=== PATIENT | male | born 1945 | race Hispanic/Latino ===

== ENCOUNTER 2024-10-28 20:53 | Emergency (ER) | payer MEDICARE ==
[~2024-10-28] VITALS: Ht 157.5 cm; Wt 90.7 kg
[2024-10-28 21:08] VITALS: TEMP 98.4
[2024-10-28 21:29] LABS: BASOPHILS % 0.2 % (0.0-1.0); EOSINOPHILS % 0.2 % (0.0-6.0); HEMATOCRIT 39.9 % (38.2-49.6); LYMPHOCYTES # (AUTO) 0.5 (1.0-3.2); LYMPHOCYTES % 4.5 % (18.0-39.1); MEAN CORPUSCULAR HEMOGLOBIN 32.5 pg (28-32); MEAN CORPUSCULAR HGB CONC 32.6 g/dL (31-35); MEAN CORPUSCULAR VOLUME 99.8 fL (81-99); MONOCYTES # (AUTO) 0.4 (0.2-0.8); MONOCYTES % 3.8 % (4.4-11.3); NEUTROPHILS # (AUTO) 9.4 (2.1-6.9); NEUTROPHILS % 90.9 % (38.7-80.0); PLATELET COUNT 171 x10e3/uL (140-360); RED CELL DISTRIBUTION WIDTH 12.3 % (11.7-14.4); WHITE BLOOD COUNT 10.37 x10e3/uL (4.8-10.8)
[2024-10-28 22:16] LABS: ALANINE AMINOTRANSFERASE 19 IU/L (0-55); ALBUMIN 3.7 g/dL (3.5-5.0); ALBUMIN/GLOBULIN RATIO 1.3 (0.8-2.0); ALKALINE PHOSPHATASE 81 IU/L (40-150); ANION GAP 16.7 mmol/L (8-16); BILIRUBIN,TOTAL 0.3 mg/dL (0.2-1.2); BLOOD UREA NITROGEN 21 mg/dL (7-26); BUN/CREATININE RATIO 13 (6-25); CALCIUM 9.7 mg/dL (8.4-10.2); CARBON DIOXIDE 25 mmol/L (22-29); CHLORIDE 103 mmol/L (98-107); CREATINE KINASE 101 IU/L (30-200); CREATININE, SERUM 1.67 mg/dL (0.72-1.25); EST GLOMERULAR FILTRATION RATE 42 ML/MIN (>=60); GLUCOSE 205 mg/dL (74-118); POTASSIUM 3.7 mmol/L (3.5-5.1); SODIUM 141 mmol/L (136-145); TOTAL PROTEIN 6.6 g/dL (6.5-8.1)
[2024-10-28 22:48] LABS: TROPONIN I < 0.05 ng/mL (0.0-0.40)
[2024-10-28] MEDS ORDERED: SODIUM CHLORIDE 0.9% 1000ML 1,000 ML IV SCH (23:00)
[2024-10-28] MEDS ORDERED: ONDANSETRON HCL INJ 2MG/ML 2ML 2 MG/ML VIAL IV PRN (23:00)
[2024-10-28] MEDS ORDERED: CEPHALEXIN500 MG PO (23:21)
[2024-10-28] MEDS ORDERED: KETOROLAC TROME10 MG PO (23:21)
[2024-10-28] MEDS: KETOROLAC TROMETHAMINE 30 MG/ML VIAL IV STA (23:30)
[2024-10-29 00:03] VITALS: PULSE 53; RESP 18; O2SAT 100
== END 2024-10-29 00:04 | disposition home or self-care (01) ==
LOC: ER 20:57
DX: S01.21XA Laceration without foreign body of nose, initial encounter (principal); W01.0XXA Fall on same level from slipping, tripping and stumbling without subsequent striking against object, initial encounter; Y93.01 Activity, walking, marching and hiking; Y92.89 Other specified places as the place of occurrence of the external cause; R94.31 Abnormal electrocardiogram [ECG] [EKG]
CPT/HCPCS: 12011; 36415; 70450; 70486; 71045; 80053; 82550; 83690; 83880; 84484; 85025; 93005; 99284; J1885